=== PATIENT | male | born 1965 | race Caucasian/White ===

== ENCOUNTER 2018-01-28 22:22 | Inpatient (IN) | payer OTHER ==
[~2018-01-28 22:22] MED LIST: ALBU6.7H INH; LEVA500T33 PO; MEDR4PAK3 PO
[2018-01-28 22:40] VITALS: BP 155/73; PULSE 84; RESP 21; TEMP 98.4; O2SAT 98
[2018-01-28] MEDS ORDERED: CLINDAMYCIN 900 MG/NS PREMIX 50 ML IV SCH (23:00)
--- NOTE | 2018-01-28 23:06 | PD ---
HPI Chief Complaint: Injury Time Seen by Provider: 22:54 Travel History International Travel<30 days: No Contact w/Intl Traveler<30days: No Traveled to known affect area: No History of Present Illness HPI 52-year-old male with history of diabetes here for evaluation foot infection. Patient was seen by the [facility] and was advised to present to the emergency department for further evaluation. The patient reports that about a week ago he had a blister on his right second toe. Over the last week he has had increasing inflammation, and erythema to this toe. He states that the toenail fell off 2 days ago. He denies fevers or chills. Pain is moderate, worse with movement and ambulation. PFSH Past Medical History Anxiety: Yes Cardiovascular Problems: Yes (STRESS TEST NEGATIVE FINDINGS) Diabetes: Yes Gastrointestinal Disorders: Yes (COLONOSCOPY) Neurologic: Yes (ESSENTIAL FAMILIAL TREMORS) Respiratory: Yes (PLEURISY) Social History Alcohol Use: Yes (RARELY) Tobacco Use: No Substance Use: No Allergies-Medications (Allergen,Severity, Reaction): Coded Allergies: No Known Allergies (Verified Allergy, Mild, 01/28/18) Reported Meds & Prescriptions Reported Meds & Active Scripts Active Reported Naproxen Sodium 220 Mg Tab 220 Mg PO BID PRN Onglyza (Saxagliptin) 5 Mg Tab 5 Mg PO DAILY Metformin (Metformin HCl) 1,000 Mg Tab 1,000 Mg PO DAILY With a meal Review of Systems Except as stated in HPI: all other systems reviewed are Neg Physical Exam Narrative GENERAL: Well-developed, well-nourished, awake, alert, no apparent distress. SKIN: Plantar aspect of right second toe with distal ulceration of moderate depth with diffuse swelling of the second toe as well as diffuse erythema. There is erythema to the entire forefoot as well as warmth. No crepitus. Moderate tenderness. No induration. No fluctuance. Right great toe with distal/medial toe with area of callus with underlying eschar. The patient reports that this was a blister a couple of months ago. HEAD: Atraumatic. Normocephalic. EYES: Pupils equal and round. No scleral icterus. No injection or drainage. ENT: No nasal bleeding or discharge. Mucous membranes pink and moist. NECK: Trachea midline. No JVD. CARDIOVASCULAR: Regular rate and rhythm. Bilateral dorsalis pedis pulses are brisk and equal. RESPIRATORY: No accessory muscle use. Clear to auscultation. Breath sounds equal bilaterally. GASTROINTESTINAL: Abdomen soft, non-tender, nondistended. MUSCULOSKELETAL: No obvious deformities. No clubbing. No cyanosis. No edema. NEUROLOGICAL: Awake and alert. No obvious cranial nerve deficits. Motor grossly within normal limits. Normal speech. PSYCHIATRIC: Appropriate mood and affect; insight and judgment normal. Data Data Last Documented VS Vital Signs Date Time Temp Pulse Resp B/P (MAP) Pulse Ox O2 Delivery O2 Flow Rate FiO2 01/28/18 22:40 98.4 84 21 155/73 (100) 98 Orders Orders Sepsis Workup Initiated (01/28/18 ) Complete Blood Count With Diff (01/28/18 23:00) Comprehensive Metabolic Panel (01/28/18 23:00) Prothrombin Time / Inr (Pt) (01/28/18 23:00) Act Partial Throm Time (Ptt) (01/28/18 23:00) Lactic Acid Sepsis Protocol (01/28/18 23:00) Blood Culture (01/28/18 23:00) Iv Access Insert/Monitor (01/28/18 23:00) Foot, Complete ([id number]) (01/28/18 ) Clindamycin 900 Mg/Ns Premix (Cleocin 90 (01/28/18 23:00) Westergren Sedimentation Rate (01/28/18 23:43) C-Reactive Protein (Crp) (01/28/18 23:30) Wound Culture And Gram Stain (01/29/18 00:32) Admit Order (Ed Use Only) (01/29/18 00:56) Labs Laboratory Tests Test 01/28/18 23:30 White Blood Count 8.5 TH/MM3 Red Blood Count 4.61 MIL/MM3 Hemoglobin 12.8 GM/DL Hematocrit 38.0 % Mean Corpuscular Volume 82.6 FL Mean Corpuscular Hemoglobin 27.8 PG Mean Corpuscular Hemoglobin Concent 33.7 % Red Cell Distribution Width 14.7 % Platelet Count 226 TH/MM3 Mean Platelet Volume 7.6 FL Neutrophils (%) (Auto) 63.6 % Lymphocytes (%) (Auto) 24.2 % Monocytes (%) (Auto) 9.3 % Eosinophils (%) (Auto) 2.2 % Basophils (%) (Auto) 0.7 % Neutrophils # (Auto) 5.4 TH/MM3 Lymphocytes # (Auto) 2.1 TH/MM3 Monocytes # (Auto) 0.8 TH/MM3 Eosinophils # (Auto) 0.2 TH/MM3 Basophils # (Auto) 0.1 TH/MM3 CBC Comment DIFF FINAL Differential Comment Erythrocyte Sedimentation Rate 44 mm/hr Prothrombin Time 10.2 SEC Prothromb Time International Ratio 1.0 RATIO Activated Partial Thromboplast Time 25.1 SEC Blood Urea Nitrogen 19 MG/DL Creatinine 0.89 MG/DL Random Glucose 153 MG/DL Total Protein 7.5 GM/DL Albumin 3.5 GM/DL Calcium Level 8.8 MG/DL Alkaline Phosphatase 62 U/L Aspartate Amino Transf (AST/SGOT) 13 U/L Alanine Aminotransferase (ALT/SGPT) 21 U/L Total Bilirubin 0.3 MG/DL Sodium Level 142 MEQ/L Potassium Level 3.9 MEQ/L Chloride Level 105 MEQ/L Carbon Dioxide Level 26.0 MEQ/L Anion Gap 11 MEQ/L Estimat Glomerular Filtration Rate 89 ML/MIN Lactic Acid Level 1.8 mmol/L C-Reactive Protein 0.41 MG/DL [facility] Medical Decision Making Medical Screen Exam Complete: Yes Emergency Medical Condition: Yes Differential Diagnosis Diabetic foot ulcer, osteomyelitis, abscess, sepsis, cellulitis Narrative Course Initial vital signs show heart rate 84, blood pressure 155/73, pulse ox 98% on room air, oral temp of 98.4F. CBC: WBC 8.5, hemoglobin 12.8, hematocrit 38, platelets 226. CMP is remarkable for random glucose 153, otherwise unremarkable. Lactic acid is 1.8. ESR is 44 CRP is 0.41 Right foot x-ray: CONCLUSION: 1. Mild to moderate degenerative change in the mid and hindfoot with no destructive change identified. 2. Moderate-sized spur off the inferior calcaneus. Patient was given a dose of 900 mg of IV clindamycin. He has an ulceration to the distal/plantar aspect of his right second toe with significant edema to the second toe with warmth and erythema of the entire right forefoot. According to the patient and the patient's significant other, this infection has rapidly progressed over the last couple of days. Although his lab work is essentially unremarkable, the patient's physical exam findings is remarkable for a significant area of cellulitis to his right foot. Given that and his history of diabetes with diabetic neuropathy, I believe the patient would benefit from at least overnight observation for IV antibiotics and podiatry evaluation. Case discussed with hospitalist Dr. Salgado who will admit the patient to his service. Diagnosis Primary Impression: Diabetic infection of right foot Admitting Information Admitting Physician Requests: Admit Pancho Perez MD January 28, 2018 23:06
--- NOTE | 2018-01-28 23:28 | RADRPT ---
EXAM DATE/TIME: 01/28/2018 23:11 [facility] COMPARISON: No previous studies available for comparison. INDICATIONS : Pain in right foot, evaluate for osteomyelitis. MEDICAL HISTORY : None. SURGICAL HISTORY : None. ENCOUNTER: Initial ACUITY: 1 day PAIN SCORE: 3/10 LOCATION: Right foot FINDINGS: AP, lateral and oblique views of the right foot were obtained and demonstrate normal mineralization a nd alignment. Degenerative changes R. noted involving the metatarsal tarsal joints and intertarsal annette ints with sclerosis, spurring and mild joint space loss. No destructive change or periosteal new bone formation is identified. There is no focal soft tissue abnormality. There is a moderate-sized spur o ff the inferior calcaneus at the site of attachment of plantar aponuerosis. CONCLUSION: 1. Mild to moderate degenerative change in the mid and hindfoot with no destructive change identified . 2. Moderate-sized spur off the inferior calcaneus. Francisco Whitmore MD on January 28, 2018 at 23:26 Board Certified Radiologist. This report was verified electronically.
[2018-01-28 23:50] LABS: AUTOMATED NEUTROPHIL # 5.4 TH/MM3 (1.8-7.7); BASOPHIL # 0.1 TH/MM3 (0-0.2); BASOPHIL % 0.7 % (0.0-2.0); EOSINOPHIL # 0.2 TH/MM3 (0-0.4); EOSINOPHIL % 2.2 % (0.0-4.0); HEMOGLOBIN 12.8 GM/DL (13.0-17.0); LYMPH % 24.2 % (9.0-44.0); LYMPHOCYTE # 2.1 TH/MM3 (1.0-4.8); MEAN CELL VOLUME 82.6 FL (80.0-100.0); MEAN CORPUSCULAR HEMOGLOBIN 27.8 PG (27.0-34.0); MEAN CORPUSCULAR HGB CONC 33.7 % (32.0-36.0); MEAN PLATELET VOLUME 7.6 FL (7.0-11.0); MONO % 9.3 % (0.0-8.0); MONOCYTE # 0.8 TH/MM3 (0-0.9); NEUT % 63.6 % (16.0-70.0); PLATELET COUNT 226 TH/MM3 (150-450); RED BLOOD COUNT 4.61 MIL/MM3 (4.50-5.90); RED CELL DISTRIBUTION WIDTH 14.7 % (11.6-17.2); WHITE BLOOD COUNT 8.5 TH/MM3 (4.0-11.0)
[2018-01-29 00:01] LABS: PROTHROMBIN TIME - PATIENT 10.2 SEC (9.8-11.6)
[2018-01-29 00:23] LABS: ALBUMIN 3.5 GM/DL (3.4-5.0); AST (GOT) 13 U/L (15-37); BLOOD UREA NITROGEN 19 MG/DL (7-18); CALCIUM 8.8 MG/DL (8.5-10.1); CHLORIDE 105 MEQ/L (98-107); CREATININE 0.89 MG/DL (0.60-1.30); GLOMERULAR FILTRATION RATE 89 ML/MIN (>89); GLUCOSE,RANDOM 153 MG/DL (74-106); SODIUM (NA) 142 MEQ/L (136-145)
[2018-01-29 00:24] LABS: ALT (GPT) 21 U/L (12-78)
[2018-01-29 00:26] LABS: ALKALINE PHOSPHATASE 62 U/L (45-117); TOTAL BILIRUBIN ADULT 0.3 MG/DL (0.2-1.0); TOTAL PROTEIN 7.5 GM/DL (6.4-8.2)
[2018-01-29 00:40] LABS: C-REACTIVE PROTEIN 0.41 MG/DL (0.00-0.30)
[2018-01-29] MEDS ORDERED: MEDI220T PO (00:43)
[2018-01-29] MEDS ORDERED: ONGL5TAB PO (00:43)
[2018-01-29] MEDS ORDERED: METF1000 PO (00:43)
[2018-01-29] MEDS ORDERED: MAGNESIUM HYDROXIDE SUSP 30 ML CUP PO PRN (01:00)
[2018-01-29] MEDS ORDERED: NALOXONE HCL 0.4 MG/ML AMP IV PUSH PRN (01:00)
[2018-01-29] MEDS ORDERED: ACETAMINOPHEN 325 MG TAB PO PRN (01:00)
[2018-01-29] MEDS ORDERED: ONDANSETRON HCL 4 MG/2 ML VIAL IVP PRN (01:00)
[2018-01-29] MEDS ORDERED: SENNOSIDES 8.6 MG TAB PO PRN (01:00)
[2018-01-29] MEDS ORDERED: BISACODYL 10 MG SUPP RECTAL PRN (01:00)
[2018-01-29] MEDS ORDERED: SODIUM CHLORIDE 0.9% FLUSH 10 ML FLUSH IV FLUSH PRN (01:00)
[2018-01-29] MEDS ORDERED: DEXTROSE 50% IN WATER 50 ML VIAL(D50) IV PUSH PRN (01:15)
[2018-01-29] MEDS ORDERED: ACETAMINOPHEN/HYDROcodone 325 MG/5 MG TAB PO PRN (01:15)
[2018-01-29] MEDS ORDERED: GLUCAGON 1 MG/ML VIAL OTHER PRN (01:15)
[2018-01-29] MEDS: PIPERACIL-TAZO 4.5 GM PREMIX 100 ML IV SCH ×4 (01:45→21:11)
--- NOTE | 2018-01-29 01:46 | HHI.HP ---
HPI Service [facility] Primary Care Physician Unknown Admission Diagnosis Infected diabetic foot ulcer Diagnoses: Chief Complaint: Right foot infection, ulceration. Travel History International Travel<30 Days: No Contact w/Intl Traveler <30 Da: No Traveled to Known Affected Are: No History of Present Illness Mr. Fournier is a 52-year-old male with a history of diabetes mellitus who presents to the emergency department on 01/29/2018 for an evaluation of right foot infection. About a week ago he noted a blister on his right second toe. Due to diabetic neuropathy, he did not feel much pain. During the course of 1 week, his first 2 toes on the right side have become tip necrosis and swelling. He denies any fever or chills. Patient denies any chest pain, abdominal pain, changes in bowel or bladder habits. Review of Systems Except as stated in HPI: all other systems reviewed are Neg Past Family Social History Past Medical History Essential tremors, pleurisy, diabetes mellitus Past Surgical History No significant surgical history Reported Medications Naproxen Sodium 220 Mg Tab 220 Mg PO BID PRN Onglyza (Saxagliptin) 5 Mg Tab 5 Mg PO DAILY Metformin (Metformin HCl) 1,000 Mg Tab 1,000 Mg PO DAILY With a meal Allergies: Coded Allergies: No Known Allergies (Verified Allergy, Mild, 01/28/18) Family History No family history of heart disease, Alzheimer's, Parkinson's Social History Alcohol Use: Yes (RARELY) Tobacco Use: No Substance Use: No Physical Exam Vital Signs Vital Signs Date Time Temp Pulse Resp B/P (MAP) Pulse Ox O2 Delivery O2 Flow Rate FiO2 01/28/18 22:40 98.4 84 21 155/73 (100) 98 Physical Exam GENERAL: This is a well-nourished, well-developed patient, in no apparent distress. SKIN: No rashes, ecchymoses or lesions. Warm and dry. HEAD: Atraumatic. Normocephalic. No temporal or scalp tenderness. EYES: Pupils equal round and reactive. No injection or drainage. ENT: Nose without bleeding, purulent drainage or septal hematoma. Airway patent. NECK: Trachea midline. No lymphadenopathy. Supple, nontender, no meningeal signs. CARDIOVASCULAR: Regular rate and rhythm without murmurs, gallops, or rubs. No JVD. RESPIRATORY: Clear to auscultation. Breath sounds equal bilaterally. No wheezes , rales, or rhonchi. GASTROINTESTINAL: Abdomen soft, non-tender, nondistended. No guarding. MUSCULOSKELETAL: 1+ lower extremity edema. Right foot has first digit swelling with ulceration and tip is necrotic, 2nd toe on the right also is swollen. NEUROLOGICAL: Awake and alert. Cranial nerves II through XII intact. No focal neurological deficits. Normal speech. Laboratory Laboratory Tests Test 01/28/18 23:30 White Blood Count 8.5 Red Blood Count 4.61 Hemoglobin 12.8 Hematocrit 38.0 Mean Corpuscular Volume 82.6 Mean Corpuscular Hemoglobin 27.8 Mean Corpuscular Hemoglobin Concent 33.7 Red Cell Distribution Width 14.7 Platelet Count 226 Mean Platelet Volume 7.6 Neutrophils (%) (Auto) 63.6 Lymphocytes (%) (Auto) 24.2 Monocytes (%) (Auto) 9.3 Eosinophils (%) (Auto) 2.2 Basophils (%) (Auto) 0.7 Neutrophils # (Auto) 5.4 Lymphocytes # (Auto) 2.1 Monocytes # (Auto) 0.8 Eosinophils # (Auto) 0.2 Basophils # (Auto) 0.1 CBC Comment DIFF FINAL Differential Comment Erythrocyte Sedimentation Rate 44 Prothrombin Time 10.2 Prothromb Time International Ratio 1.0 Activated Partial Thromboplast Time 25.1 Blood Urea Nitrogen 19 Creatinine 0.89 Random Glucose 153 Total Protein 7.5 Albumin 3.5 Calcium Level 8.8 Alkaline Phosphatase 62 Aspartate Amino Transf (AST/SGOT) 13 Alanine Aminotransferase (ALT/SGPT) 21 Total Bilirubin 0.3 Sodium Level 142 Potassium Level 3.9 Chloride Level 105 Carbon Dioxide Level 26.0 Anion Gap 11 Estimat Glomerular Filtration Rate 89 Lactic Acid Level 1.8 C-Reactive Protein 0.41 Date/Time Source Procedure Growth Status 01/28/18 23:25 Blood Peripheral Aerobic Blood Culture Pending Received 01/28/18 23:25 Blood Peripheral Anaerobic Blood Culture Pending Received Result Diagram: 01/28/18 2330 01/28/18 2330 Imaging Last Impressions Foot X-Ray 01/28/18 0000 Signed Impressions: Service Date/Time: Sunday, January 28, 2018 23:11 - CONCLUSION: 1. Mild to moderate degenerative change in the mid and hindfoot with no destructive change identified. 2. Moderate-sized spur off the inferior calcaneus. MD Myriam Swartz VTE Risk Assessment Caprin VTE Risk Assessment: Mod/High Risk (score >= 2) Caprini Risk Assessment Model Point Value = 1 Point Value = 2 Point Value = 3 Point Value = 5 Age 41-60 Minor surgery BMI > 25 kg/m2 Swollen legs Varicose veins or History of unexplained or recurrent spontaneous Oral contraceptives or hormone replacement Sepsis (< 1 month) Serious lung disease, including pneumonia (< 1 month) Abnormal pulmonary function Acute myocardial infarction Congestive heart failure (< 1 month) History of inflammatory bowel disease Medical patient at bed rest Age 61-74 Arthroscopic surgery Major open surgery (> 45 min) Laparoscopic surgery (> 45 min) Malignancy Confined to bed (> 72 hours) Immobilizing plaster cast Central venous access Age >= 75 History of VTE Family history of VTE Factor V Leiden Prothrombin [id number] Lupus anticoagulant Anticardiolipin antibodies Elevated serum homocysteine Heparin-induced thrombocytopenia Other congenital or acquired thrombophilia Stroke (< 1 month) Elective arthroplasty Hip, pelvis, or leg fracture Acute spinal cord injury (< 1 month) Prophylaxis Regimen Total Risk Factor Score Risk Level Prophylaxis Regimen 0-1 Low Early ambulation 2 Moderate Order ONE of the following: *Sequential Compression Device (SCD) *Heparin 5000 units SQ BID 3-4 Higher Order ONE of the following medications: *Heparin 5000 units SQ TID *Enoxaparin/Lovenox 40 mg SQ daily (WT < 150 kg, CrCl > 30 mL/min) *Enoxaparin/Lovenox 30 mg SQ daily (WT < 150 kg, CrCl > 10-29 mL/min) *Enoxaparin/Lovenox 30 mg SQ BID (WT < 150 kg, CrCl > 30 mL/min) AND/OR *Sequential Compression Device (SCD) 5 or more Highest Order ONE of the following medications: *Heparin 5000 units SQ TID (Preferred with Epidurals) *Enoxaparin/Lovenox 40 mg SQ daily (WT < 150 kg, CrCl > 30 mL/min) *Enoxaparin/Lovenox 30 mg SQ daily (WT < 150 kg, CrCl > 10-29 mL/min) *Enoxaparin/Lovenox 30 mg SQ BID (WT < 150 kg, CrCl > 30 mL/min) AND *Sequential Compression Device (SCD) Assessment and Plan Problem List: (1) Diabetic infection of right foot ICD Code: E11.628 - Type 2 diabetes mellitus with other skin complications; L08.9 - Local infection of the skin and subcutaneous tissue, unspecified Status: Acute (2) Diabetes mellitus ICD Code: E11.9 - Type 2 diabetes mellitus without complications Assessment and Plan Mr. Fournier is a pleasant 52-year-old male with a history of diabetes mellitus who presents to the emergency department due to diabetic foot infection of the right foot. He noticed a blister about 1 week ago and that has gradually worsened. Diabetic foot infection -We will start patient on Zosyn 4.5 g every 6 hours. -Consult podiatry. Deep tissue biopsy may be necessary. -Follow blood cultures. -Foot x-ray is not indicative of osteomyelitis. -Will obtain RAMÍREZ. Diabetes mellitus -We will continue sliding scale insulin for now. Goal blood glucose 140-180 while in the hospital. -At home patient takes metformin 1000 mg daily and Saxagliptin 5mg Qday. Full code. Lovenox. Physician Certification 2 Midnight Certification Type: Admission for Inpatient Services Order for Inpatient Services The services are ordered in accordance with Medicare regulations or non- Medicare payer requirements, as applicable. In the case of services not specified as inpatient-only, they are appropriately provided as inpatient services in accordance with the 2-midnight benchmark. Estimated LOS (days): 2 days is the estimated time the patient will need to remain in the hospital, assuming treatment plan goals are met and no additional complications. Post-Hospital Plan: Home Sebas Salgado DO January 29, 2018 1:46 am
[2018-01-29 04:17] VITALS: BP 148/77; PULSE 66; RESP 16; TEMP 97.5; O2SAT 96
[2018-01-29 07:53] VITALS: BP 131/81; PULSE 65; RESP 20; TEMP 97.5; O2SAT 98
[2018-01-29] MEDS: INSULIN ASPART SUPPLEMENTAL SCALE SQ SCH ×4 (08:00→21:00)
[2018-01-29] MEDS: SODIUM CHLORIDE 0.9% FLUSH 10 ML FLUSH IV FLUSH SCH ×2 (09:00→21:12)
--- NOTE | 2018-01-29 09:06 | HHI.PR ---
Subjective Remarks Follow-up on patient with infected diabetic foot injury. Patient seen and examined. Patient denies any complaints overnight. Denies any fever chills. Denies any nausea, vomiting or abdominal pain. Denies any chest pain or shortness of breath. Patient states his blood sugars well controlled at home running around 113 to 123. Patient's car broke in June of last year he has been walking 2 [address] to the bus stop every day for work. Patient states that a week ago he developed a blister on the bottom of the right second digit but he was unaware of due to loss of sensation. Wound has become progressed enlarged with increasing pain, erythema and edema. Patient reports frequent blood blisters on the first digit of the right foot. He has never been hospitalized for diabetic foot infection in the past. He does not follow with podiatry as outpatient. Patient has no complaints of lower extreme claudication. Objective Vitals Vital Signs Date Time Temp Pulse Resp B/P (MAP) Pulse Ox O2 Delivery O2 Flow Rate FiO2 01/29/18 07:53 97.5 65 20 131/81 (98) 98 01/29/18 04:17 97.5 66 16 148/77 (100) 96 01/28/18 22:40 98.4 84 21 155/73 (100) 98 I/O 01/28/18 01/28/18 01/28/18 01/29/18 01/29/18 01/29/18 07:00 15:00 23:00 07:00 15:00 23:00 Intake Total 50 ml Balance 50 ml Intake IV Total 50 ml Result Diagram: 01/28/18 2330 01/28/18 2330 Imaging Last Impressions Foot X-Ray 01/28/18 0000 Signed Impressions: Service Date/Time: Sunday, January 28, 2018 23:11 - CONCLUSION: 1. Mild to moderate degenerative change in the mid and hindfoot with no destructive change identified. 2. Moderate-sized spur off the inferior calcaneus. Francisco Whitmore MD Objective Remarks GENERAL: This is a well-nourished, well-developed male patient, in no apparent distress. Awake and alert. Appears comfortable. SKIN: Warm and dry. Right foot 1st digit with swelling, ulceration of the tip of the distal aspect of the hallux with necrosis. Second digit on the right edematous, erythematous with superficial wound over the bottom of the toe HEAD: Atraumatic. Normocephalic. No temporal or scalp tenderness. Bilateral lower extremity venous stasis changes noted with mild erythema noted over anterior right lower leg. EYES: Pupils equal round and reactive. No injection or drainage. ENT: Nose without bleeding or purulent drainage. Airway patent. MMM. NECK: Trachea midline. No lymphadenopathy. Supple, nontender, no meningeal signs. CARDIOVASCULAR: Regular rate and rhythm without murmurs, gallops, or rubs. No JVD. RESPIRATORY: Clear to auscultation. Breath sounds equal bilaterally. No wheezes , rales, or rhonchi. GASTROINTESTINAL: Abdomen soft, non-tender, nondistended. No guarding. MUSCULOSKELETAL: No obvious deformity noted. No clubbing or cyanosis. Bilateral lower extremity with trace to 1+ pitting edema with R leg slightly larger than the left. NEUROLOGICAL: Awake and alert. Cranial nerves II through XII grossly intact. Motor and sensory functions grossly intact. No focal neurological deficits. Normal speech. PSYCHIATRIC: Appropriate mood and affect. Normal judgment and insight. Calm and cooperative with examination. A/P Problem List: (1) Diabetic infection of right foot ICD Code: E11.628 - Type 2 diabetes mellitus with other skin complications; L08.9 - Local infection of the skin and subcutaneous tissue, unspecified Status: Acute (2) Diabetes mellitus ICD Code: E11.9 - Type 2 diabetes mellitus without complications Assessment and Plan Mr. Fournier is a pleasant 52-year-old male with a history of diabetes mellitus who presents to the emergency department due to diabetic foot infection of the right foot. He noticed a blister about 1 week ago and that has gradually worsened. Diabetic foot infection right 1st and 2nd digits Right foot first and second digit cellulitis X-ray of the right foot not indicative of osteomyelitis ESR 44, CRP 0.41 -Continue on Zosyn 4.5 g every 6 hours. -Consult podiatry. Deep tissue biopsy may be necessary. -Follow wound and blood cultures until finalized -Will obtain RAMÍREZ. Diabetes mellitus At home patient takes metformin 1000 mg daily and Saxagliptin 5mg Qday. -Obtain HgbA1c -We will continue with accucheks and sliding scale insulin for now. Goal blood glucose 140-180 while in the hospital. Full code. Lydia Siddiqui January 29, 2018 09:06
[2018-01-29] MEDS: ENOXAPARIN SODIUM 40 MG/0.4 ML SYRINGE SQ SCH (11:03)
[2018-01-29 11:07] VITALS: BP 119/61; PULSE 64; RESP 20; TEMP 98.2; O2SAT 97
--- NOTE | 2018-01-29 15:00 | RADRPT ---
EXAM DATE: 01/29/2018 2:51 PM EDT AGE/SEX: 52 years / Male INDICATIONS: Right foot pain and swelling. Diabetic neuropathy with right foot/toes infection. CLINICAL DATA: This is the patient's initial encounter. Patient reports that signs and symptoms have been present for 1 day and indicates a pain score of 3/10. MEDICAL/SURGICAL HISTORY: Hypertension. Essential familial tremors. Diabetes. Pleurisy. Diabeti c neuropathy. . Colonoscopy. Hernia repair. COMPARISON: No prior [facility] exams available for comparison. TECHNIQUE: Venous ultrasound of both lower extremities was performed from the inguinal ligament to t he proximal calf. Real-time, color Doppler and spectral tracing, compression and augmentation techni ques were used. FINDINGS: Right Leg: There is normal compressibility of the deep venous system from the inguinal region to the proximal calf. No echogenic clot is seen in the lumen of the common femoral, femoral, popliteal, an d posterior tibial veins. There is a normal response of the venous system to proximal and distal aug mentation and respiration. Left Leg: There is normal compressibility of the deep venous system from the inguinal region to the proximal calf. No echogenic clot is seen in the lumen of the common femoral, femoral, popliteal, and posterior tibial veins. There is a normal response of the venous system to proximal and distal augm entation and respiration. CONCLUSION: 1. No evidence of DVT. Electronically signed by: Yrn Castellanos MD 01/29/2018 2:58 PM EDT
[2018-01-29 15:06] VITALS: BP 135/72; PULSE 62; RESP 20; TEMP 97.8; O2SAT 96
[2018-01-29 16:12] LABS: HEMOGLOBIN A1C 5.9 % (4.3-6.0)
--- NOTE | 2018-01-29 18:37 | PD.CONS ---
History of Present Illness Consult Requested By Foot and ankle surgery/podiatry Reason for Consult Right foot infection Primary Care Physician Unknown Diagnoses: History of Present Illness Foot and ankle surgery/podiatry consulted for this 52-year-old male with history of diabetes mellitus states he noted a blister to his right second toe when seen in a who presented to the emergency department for evaluation of right foot infection. Patient was seen in a community clinic in [facility], upon being seen patient was encouraged to proceed immediately to the emergency department secondary to degree of infection. Patient is neuropathic and does not have feeling the bilateral lower extremities. He denies any nausea vomiting fevers or chills. Review of Systems Constitutional: DENIES: Fatigue, Fever Respiratory: DENIES: Cough, Shortness of breath Cardiovascular: DENIES: Chest pain, Lower Extremity Edema Musculoskeletal: DENIES: Joint pain Neurologic: DENIES: Abnormal gait Psychiatric: DENIES: Anxiety, Confusion Past Family Social History Allergies: Coded Allergies: No Known Allergies (Verified Allergy, Mild, 01/28/18) Past Medical History As per HPI Active Ordered Medications Current Medications Medications (Trade) Dose Ordered Sig/Jared Route Start Time Stop Time Status Last Admin (NS Flush) 2 ml UNSCH PRN IV FLUSH 01/29/18 01:00 (NS Flush) 2 ml BID IV FLUSH 01/29/18 09:00 01/29/18 09:00 (Tylenol) 650 mg Q4H PRN PO 01/29/18 01:00 (Zofran Inj) 4 mg Q6H PRN IVP 01/29/18 01:00 (Lovenox Inj) 40 mg Q24H SQ 01/29/18 09:00 01/29/18 11:03 (Narcan Inj) 0.4 mg UNSCH PRN IV PUSH 01/29/18 01:00 (Milk Of Magnesia Liq) 30 ml Q12H PRN PO 01/29/18 01:00 (Senokot) 17.2 mg Q12H PRN PO 01/29/18 01:00 (Dulcolax Supp) 10 mg DAILY PRN RECTAL 01/29/18 01:00 (Lactulose Liq) 30 ml DAILY PRN PO 01/29/18 01:00 Piperacillin Sod/ Tazobactam Sod 100 ml @ 200 mls/hr Q6H IV 01/29/18 01:00 01/29/18 13:00 (D50w (Vial) Inj) 50 ml UNSCH PRN IV PUSH 01/29/18 01:15 (Glucagon Inj) 1 mg UNSCH PRN OTHER 01/29/18 01:15 (NovoLOG SUPPLEMENTAL SCALE) 1 ACHS SLIDING SCALE SQ 01/29/18 08:00 ([place] 5-325 Mg) 1 tab Q6H PRN PO 01/29/18 01:15 Physical Exam Vital Signs Vital Signs Date Time Temp Pulse Resp B/P (MAP) Pulse Ox O2 Delivery O2 Flow Rate FiO2 01/29/18 15:06 97.8 62 20 135/72 (93) 96 01/29/18 11:07 98.2 64 20 119/61 (80) 97 01/29/18 07:53 97.5 65 20 131/81 (98) 98 01/29/18 04:17 97.5 66 16 148/77 (100) 96 01/28/18 22:40 98.4 84 21 155/73 (100) 98 Physical Exam GENERAL: This is a well-nourished, well-developed patient, in no apparent distress. SKIN: Distal tip ulcer to right second digit, medial hallux blister formation HEAD: Atraumatic. EYES: Pupils equal round and reactive. ENT: Airway patent. NECK: Trachea midline. RESPIRATORY: Nonlabored breathing. MUSCULOSKELETAL:. Negative Homans sign bilaterally. NEUROLOGICAL: Awake and alert. Normal speech. Lower extremity physical exam: Vascular: Dorsalis pedis 2/4, posterior tibial nonpalpable. Capillary refill time within normal limits to digits 5 bilateral foot. Edema present right foot Neuro: Gross sensation intact to bilateral lower extremity. Pinpoint sensation decreased. No hyperalgesia noted to bilateral lower extremity Dermatology: Increased temperature noted to right foot with ascending erythema noted into tarsometatarsal joint. Right second digit distal tip ulceration with fibro-granular base, hyperkeratotic borders, nail absent, serous drainage noted, no purulent drainage noted upon compression, no fluctuance no crepitans noted. Musculoskeletal: No tenderness to palpation. Hammertoe noted to right second digit which is causing distal tip ulceration. Laboratory Laboratory Tests Test 01/28/18 23:30 White Blood Count 8.5 Red Blood Count 4.61 Hemoglobin 12.8 Hematocrit 38.0 Mean Corpuscular Volume 82.6 Mean Corpuscular Hemoglobin 27.8 Mean Corpuscular Hemoglobin Concent 33.7 Red Cell Distribution Width 14.7 Platelet Count 226 Mean Platelet Volume 7.6 Neutrophils (%) (Auto) 63.6 Lymphocytes (%) (Auto) 24.2 Monocytes (%) (Auto) 9.3 Eosinophils (%) (Auto) 2.2 Basophils (%) (Auto) 0.7 Neutrophils # (Auto) 5.4 Lymphocytes # (Auto) 2.1 Monocytes # (Auto) 0.8 Eosinophils # (Auto) 0.2 Basophils # (Auto) 0.1 CBC Comment DIFF FINAL Differential Comment Erythrocyte Sedimentation Rate 44 Prothrombin Time 10.2 Prothromb Time International Ratio 1.0 Activated Partial Thromboplast Time 25.1 Blood Urea Nitrogen 19 Creatinine 0.89 Random Glucose 153 Total Protein 7.5 Albumin 3.5 Calcium Level 8.8 Alkaline Phosphatase 62 Aspartate Amino Transf (AST/SGOT) 13 Alanine Aminotransferase (ALT/SGPT) 21 Total Bilirubin 0.3 Sodium Level 142 Potassium Level 3.9 Chloride Level 105 Carbon Dioxide Level 26.0 Anion Gap 11 Estimat Glomerular Filtration Rate 89 Hemoglobin A1c 5.9 Lactic Acid Level 1.8 C-Reactive Protein 0.41 Date/Time Source Procedure Growth Status 01/28/18 23:25 Blood Peripheral Aerobic Blood Culture - Preliminary NO GROWTH IN 1 DAY Resulted 01/28/18 23:25 Blood Peripheral Anaerobic Blood Culture - Preliminary NO GROWTH IN 1 DAY Resulted 01/29/18 08:19 Wound Toe Gram Stain - Final Resulted 01/29/18 08:19 Wound Toe Wound Culture Pending Resulted Result Diagram: 01/28/18 2330 01/28/18 2330 Imaging Last Impressions Lower Extremity Ultrasound 01/29/18 0000 Signed Impressions: CONCLUSION: Foot X-Ray 01/28/18 0000 Signed Impressions: Service Date/Time: Sunday, January 28, 2018 23:11 - CONCLUSION: 1. Mild to moderate degenerative change in the mid and hindfoot with no destructive change identified. 2. Moderate-sized spur off the inferior calcaneus. Francisco Whitmore MD Assessment and Plan Assessment and Plan 52-year-old male with right second digit ulceration, right hallux blister formation Patient examined evaluated with all questions answered Continue IV antibiotics MRI right foot rule out osteomyelitis to right second digit We will order ABIs Consult vascular surgery Dr. Jazerevic if ABIs are abnormal Will perform bedside debridement prior to discharge Patient will need discharge to wound care clinic here at [place] Consent to read bedside debridement irrigation right foot Please have materials bedside Mellissa Worthy DPM January 29, 2018 18:36
[2018-01-29 19:36] VITALS: BP 128/72; PULSE 66; RESP 18; TEMP 97.8; O2SAT 97
[2018-01-29] MEDS ORDERED: INSULIN DETEMIR 100 UNITS/ML VIAL SQ SCH (21:00)
[2018-01-30 00:57] VITALS: BP 132/75; PULSE 60; RESP 18; TEMP 97.8; O2SAT 97
[2018-01-30] MEDS: PIPERACIL-TAZO 4.5 GM PREMIX 100 ML IV SCH ×4 (01:12→18:30)
[2018-01-30 07:13] VITALS: BP 130/70; PULSE 62; RESP 20; TEMP 97.4; O2SAT 95
[2018-01-30] MEDS: INSULIN ASPART SUPPLEMENTAL SCALE SQ SCH ×4 (08:00→20:05)
[2018-01-30] MEDS: ENOXAPARIN SODIUM 40 MG/0.4 ML SYRINGE SQ SCH (08:37)
[2018-01-30] MEDS: SODIUM CHLORIDE 0.9% FLUSH 10 ML FLUSH IV FLUSH SCH ×2 (08:37→20:05)
[2018-01-30] MEDS ORDERED: GADODIAMIDE PF 287 MG/ML 20 ML VIAL (for RAD MRI) IV PUSH ONE (11:47)
--- NOTE | 2018-01-30 12:14 | RADRPT ---
EXAM DATE: 01/30/2018 11:36 AM EDT AGE/SEX: 52 years / Male INDICATIONS: . Right 2nd digit ulcer. CLINICAL DATA: This is the patient's subsequent encounter. Patient reports that signs and symptoms h ave been present for 2 days and indicates a pain score of 2/10. MEDICAL/SURGICAL HISTORY: Hypertension. Diabetes mellitus type II. Umbilical hernia repair. COMPARISON: No prior exams available for comparison. TECHNIQUE: Multiplanar, multisequence MRI examination was performed without contrast and after th e intravenous administration of 38 ml Omniscan (gadodiamide) single exam dose. FINDINGS: Ill-defined soft tissue edema and enhancement of the second toe indicating cellulitis in the proper c linical setting. Distal cutaneous ulceration. Ill-defined bony edema distal phalanx of the second toe on the T2-weighted images. Mild bony enhancement of the distal phalanx on the postcontrast images. M ild signal abnormality on the precontrast T1-weighted images in the distal portion of the distal phal anx. No evidence of soft tissue abscess. Small osteophytes of the great toe metatarsophalangeal joint. Sma ll moderate-sized osteophytes of the tarsometatarsal joints along with mild subchondral reactive bony change at the tarsometatarsal joints. Moderate severity subchondral reactive bony change of the lamar cular cuneiform joints. Diffuse fatty atrophy of the intrinsic foot muscles. CONCLUSION: 1. Ill-defined soft tissue edema and enhancement of the second toe indicating cellulitis in the prop er clinical setting. 2. Ill-defined bony edema and enhancement of the distal talus of second toe. Mild T1-weighted precon trast signal abnormality of the distal aspect of the distal phalanx. Findings indicate early osteomye litis in the proper clinical setting. 3. 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 Electronically signed by: Edward Sorensen MD 01/30/2018 12:12 PM EDT
[2018-01-30 12:56] VITALS: BP 151/81; PULSE 72; RESP 15; TEMP 97.7; O2SAT 96
--- NOTE | 2018-01-30 16:02 | RADRPT ---
EXAM DATE: 01/29/2018 2:21 PM EDT AGE/SEX: 52 years / Male INDICATIONS: Infected diabetic foot ulcer CLINICAL DATA: This is the patient's initial encounter. Patient reports that signs and symptoms have been present for 2 weeks and indicates a pain score of 3/10. MEDICAL/SURGICAL HISTORY: . Infected diabetic foot ulcer . COMPARISON: No prior [facility] exams available for comparison. TECHNIQUE: Four-cuff ankle and brachial pressures were obtained. Pulse cuff waveform tracings of the ankles were recorded, and ankle-brachial indices were calculated. PRESSURES (mmHg): Brachial (arm) : RIGHT: IV site, LEFT: 126 Ankle : RIGHT: 157, LEFT: 153 RAMÍREZ : RIGHT: 1.25, LEFT: 1.21 TBI : RIGHT: 0.71, LEFT: 0.99 PULSED CUFF WAVEFORMS: Demonstrate normal amplitude bilaterally. CONCLUSION: 1. Elevated segmental pressures characteristic of atherosclerotic vascular disease 2. Normal ABIs and TBI's; no evidence of significant arterial insufficiency. Electronically signed by: Bryce Mora MD 01/29/2018 2:33 PM EDT
[2018-01-30 16:10] VITALS: BP 151/75; PULSE 66; RESP 18; TEMP 97.6; O2SAT 97
--- NOTE | 2018-01-30 19:29 | HHI.PR ---
Subjective Remarks Pain controlled Patient denies fevers or chills Denies nausea, denies diarrhea. Objective Vitals Vital Signs Date Time Temp Pulse Resp B/P (MAP) Pulse Ox O2 Delivery O2 Flow Rate FiO2 01/30/18 16:10 97.6 66 18 151/75 (100) 97 01/30/18 12:56 97.7 72 15 151/81 (104) 96 01/30/18 07:13 97.4 62 20 130/70 (90) 95 01/30/18 00:57 97.8 60 18 132/75 (94) 97 01/29/18 19:36 97.8 66 18 128/72 (90) 97 I/O 01/29/18 01/29/18 01/29/18 01/30/18 01/30/18 01/30/18 07:00 15:00 23:00 07:00 15:00 23:00 Intake Total 50 ml Balance 50 ml Intake IV Total 50 ml Result Diagram: 01/28/18 2330 01/28/18 2330 Imaging Last Impressions Foot MRI 01/30/18 0000 Signed Impressions: CONCLUSION: 1. Ill-defined soft tissue edema and enhancement of the second toe indicating cellulitis in the proper clinical setting. 2. Ill-defined bony edema and enhancement of the distal talus of second toe. M ild T1-weighted precontrast signal abnormality of the distal aspect of the dist al phalanx. Findings indicate early osteomyelitis in the proper clinical settin g. 3. 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 Lower Extremity Ultrasound 01/29/18 0000 Signed Impressions: CONCLUSION: 1. No evidence of DVT. Extremity Arterial Study 01/29/18 0000 Signed Impressions: CONCLUSION: 1. Elevated segmental pressures characteristic of atherosclerotic vascular dis ease 2. Normal ABIs and TBI's; no evidence of significant arterial insufficiency. Foot X-Ray 01/28/18 0000 Signed Impressions: Service Date/Time: Sunday, January 28, 2018 23:11 - CONCLUSION: 1. Mild to moderate degenerative change in the mid and hindfoot with no destructive change identified. 2. Moderate-sized spur off the inferior calcaneus. Francisco Whitmore MD Objective Remarks GENERAL: This is a well-nourished, well-developed patient, in no apparent distress. SKIN: No rashes, ecchymoses or lesions. Warm and dry. HEAD: Atraumatic. Normocephalic. No temporal or scalp tenderness. EYES: Pupils equal round and reactive. No injection or drainage. ENT: Nose without bleeding, purulent drainage or septal hematoma. Airway patent. NECK: Trachea midline. No lymphadenopathy. Supple, nontender, no meningeal signs. CARDIOVASCULAR: Regular rate and rhythm without murmurs, gallops, or rubs. No JVD. RESPIRATORY: Clear to auscultation. Breath sounds equal bilaterally. No wheezes , rales, or rhonchi. GASTROINTESTINAL: Abdomen soft, non-tender, nondistended. No guarding. MUSCULOSKELETAL: 1+ lower extremity edema. Right foot has first digit swelling with ulceration and tip is necrotic, 2nd toe on the right also is swollen. NEUROLOGICAL: Awake and alert. Cranial nerves II through XII intact. No focal neurological deficits. Normal speech. A/P Problem List: (1) Diabetic infection of right foot ICD Code: E11.628 - Type 2 diabetes mellitus with other skin complications; L08.9 - Local infection of the skin and subcutaneous tissue, unspecified Status: Acute (2) Diabetes mellitus ICD Code: E11.9 - Type 2 diabetes mellitus without complications (3) Foot osteomyelitis, right ICD Code: M86.9 - Osteomyelitis, unspecified Assessment and Plan MR with signs of early osteomyelitis continue pain control await podiatry recommendations continue IV antibiotics RAMÍREZ abnormal ---> consult vascular surgery. Diabetes well controlled - - hemoglobin A1c 5.9. Continue SSI. Wound culture is growing gram negative rods Pain control with [place]. Continue Lovenox SQ for DVT prophylaxis. Discharge Planning Continue medical floor. Vascular surgery consulted. Problem Qualifiers (1) Diabetes mellitus: Franki Ferreira MD January 30, 2018 19:29
--- NOTE | 2018-01-30 19:36 | HHI.PR ---
Subjective Remarks Patient seen bedside, discussed MRI results with patient. Denies any nausea vomiting fevers or chills. Objective Vital Signs Date Time Temp Pulse Resp B/P (MAP) Pulse Ox O2 Delivery O2 Flow Rate FiO2 01/30/18 16:10 97.6 66 18 151/75 (100) 97 01/30/18 12:56 97.7 72 15 151/81 (104) 96 01/30/18 07:13 97.4 62 20 130/70 (90) 95 01/30/18 00:57 97.8 60 18 132/75 (94) 97 01/29/18 19:36 97.8 66 18 128/72 (90) 97 I/O 01/29/18 01/29/18 01/29/18 01/30/18 01/30/18 01/30/18 07:00 15:00 23:00 07:00 15:00 23:00 Intake Total 50 ml Balance 50 ml Intake IV Total 50 ml Result Diagram: 01/28/18 2330 01/28/18 2330 Imaging Last Impressions Foot MRI 01/30/18 0000 Signed Impressions: CONCLUSION: 1. Ill-defined soft tissue edema and enhancement of the second toe indicating cellulitis in the proper clinical setting. 2. Ill-defined bony edema and enhancement of the distal talus of second toe. M ild T1-weighted precontrast signal abnormality of the distal aspect of the dist al phalanx. Findings indicate early osteomyelitis in the proper clinical settin g. 3. 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 Lower Extremity Ultrasound 01/29/18 0000 Signed Impressions: CONCLUSION: 1. No evidence of DVT. Extremity Arterial Study 01/29/18 0000 Signed Impressions: CONCLUSION: 1. Elevated segmental pressures characteristic of atherosclerotic vascular dis ease 2. Normal ABIs and TBI's; no evidence of significant arterial insufficiency. Foot X-Ray 01/28/18 0000 Signed Impressions: Service Date/Time: Sunday, January 28, 2018 23:11 - CONCLUSION: 1. Mild to moderate degenerative change in the mid and hindfoot with no destructive change identified. 2. Moderate-sized spur off the inferior calcaneus. Francisco Whitmore MD Other Results Microbiology Date/Time Source Procedure Growth Status 01/28/18 23:25 Blood Peripheral Aerobic Blood Culture - Preliminary NO GROWTH IN 2 DAYS Resulted 01/28/18 23:25 Blood Peripheral Anaerobic Blood Culture - Preliminary NO GROWTH IN 2 DAYS Resulted 01/29/18 08:19 Wound Toe Gram Stain - Final Resulted 01/29/18 08:19 Wound Culture - Preliminary Gram Negative Lele Resulted Objective Remarks Lower extremity physical exam: Vascular: Dorsalis pedis 2/4, posterior tibial nonpalpable. Capillary refill time within normal limits to digits 5 bilateral foot. Edema present right foot Neuro: Gross sensation intact to bilateral lower extremity. Pinpoint sensation decreased. No hyperalgesia noted to bilateral lower extremity Dermatology: Increased temperature noted to right foot with ascending erythema noted into tarsometatarsal joint. Right second digit distal tip ulceration with fibro-granular base, hyperkeratotic borders, nail absent, serous drainage noted, no purulent drainage noted upon compression, no fluctuance no crepitans noted. Musculoskeletal: No tenderness to palpation. Hammertoe noted to right second digit which is causing distal tip ulceration. Medications and IVs Current Medications Medications (Trade) Dose Ordered Sig/Jared Route Start Time Stop Time Status Last Admin (NS Flush) 2 ml UNSCH PRN IV FLUSH 01/29/18 01:00 (NS Flush) 2 ml BID IV FLUSH 01/29/18 09:00 01/30/18 08:37 (Tylenol) 650 mg Q4H PRN PO 01/29/18 01:00 (Zofran Inj) 4 mg Q6H PRN IVP 01/29/18 01:00 (Lovenox Inj) 40 mg Q24H SQ 01/29/18 09:00 01/29/18 11:03 (Narcan Inj) 0.4 mg UNSCH PRN IV PUSH 01/29/18 01:00 (Milk Of Magnesia Liq) 30 ml Q12H PRN PO 01/29/18 01:00 (Senokot) 17.2 mg Q12H PRN PO 01/29/18 01:00 (Dulcolax Supp) 10 mg DAILY PRN RECTAL 01/29/18 01:00 (Lactulose Liq) 30 ml DAILY PRN PO 01/29/18 01:00 Piperacillin Sod/ Tazobactam Sod 100 ml @ 200 mls/hr Q6H IV 01/29/18 01:00 01/30/18 18:30 (D50w (Vial) Inj) 50 ml UNSCH PRN IV PUSH 01/29/18 01:15 (Glucagon Inj) 1 mg UNSCH PRN OTHER 01/29/18 01:15 (NovoLOG SUPPLEMENTAL SCALE) 1 ACHS SLIDING SCALE SQ 01/29/18 08:00 ([place] 5-325 Mg) 1 tab Q6H PRN PO 01/29/18 01:15 Assessment and Plan Assessment and Plan 52-year-old male with right second digit ulceration, right hallux blister formation Patient examined evaluated with all questions answered ABIs normal MRI suspicious for right second digit distal phalanx early signs of OM Bedside debridement performed to right second digit Patient at this time would like to move forward with IV antibiotic treatment versus amputation Recommend IV antibiotics however secondary to clinical nature of wound, there is no probe to bone and would recommend against a bone biopsy at this time is to not expose bone to possible further infection Patient will need follow-up with [place] [facility] Patient okay to be DC'd by podiatry once appropriate outpatient antibiotics have been arranged as well as appointment with [place] [facility] Mellissa Worthy DPM January 30, 2018 19:36
[2018-01-30 20:00] VITALS: BP 138/66; PULSE 66; RESP 16; TEMP 97.7; O2SAT 94
[2018-01-31] VITALS: BP 124/69; PULSE 60; RESP 16; TEMP 97.1; O2SAT 97
[2018-01-31] MEDS: PIPERACIL-TAZO 4.5 GM PREMIX 100 ML IV SCH ×4 (00:53→18:36)
[2018-01-31 08:00] VITALS: BP 127/67; PULSE 58; RESP 20; TEMP 97.4; O2SAT 97
[2018-01-31] MEDS: SODIUM CHLORIDE 0.9% FLUSH 10 ML FLUSH IV FLUSH SCH ×2 (09:12→20:41)
[2018-01-31] MEDS: INSULIN ASPART SUPPLEMENTAL SCALE SQ SCH ×4 (09:13→20:41)
[2018-01-31] MEDS: ENOXAPARIN SODIUM 40 MG/0.4 ML SYRINGE SQ SCH (09:13)
[2018-01-31 12:00] VITALS: BP 144/79; PULSE 64; RESP 18; TEMP 97.3; O2SAT 93
--- NOTE | 2018-01-31 13:35 | PD.ID.CON ---
History of Present Illness Service ID Consult Requested By Dr Worthy Reason for Consult osteomyelitis 2 nf R toe Primary Care Physician Unknown Diagnoses: History of Present Illness 52-year-old diabetic male developped a blister to his right second toe about a week ago Swelling and redness go progressively worse He was seen in a community clinic in [facility], upon being seen patient was encouraged to proceed immediately to the emergency department secondary to degree of infection. Patient is neuropathic and does not have feeling the bilateral lower extremities. He denies any nausea vomiting fevers or chills. MRI + for osteo He is s/p bedside debridement by Dr Worthy Review of Systems Except as stated in HPI: all other systems reviewed are Neg Past Family Social History Allergies: Coded Allergies: No Known Allergies (Verified Allergy, Mild, 01/28/18) Past Medical History DM neuropathy Past Surgical History colonoscopy Active Ordered Medications Medications where reviewed in EMR Antibiotics Include: zosyn Family History reviewed non contributoryto current ID issue Social History No Tobacco. No ETOH. No Illicit Drugs. Physical Exam Vital Signs Vital Signs Date Time Temp Pulse Resp B/P (MAP) Pulse Ox O2 Delivery O2 Flow Rate FiO2 01/31/18 00:00 97.1 60 16 124/69 (87) 97 01/30/18 20:00 97.7 66 16 138/66 (90) 94 01/30/18 16:10 97.6 66 18 151/75 (100) 97 Physical Exam CONSTITUTIONAL/GENERAL: This is an adequately nourished patient, in no apparent distress. TUBES/LINES/DRAINS: SKIN: No jaundice, rashes, or lesions. Skin temperature appropriate. Not diaphoretic. HEAD: Atraumatic. Normocephalic. EYES: Pupils equal and round and reactive. Extraocular motions intact. No scleral icterus. No injection or drainage. Fundi not examined. ENT: Hearing grossly normal. Nose without bleeding or purulent drainage. Throat without visible erythema, exudates, masses, or lesions. NECK: Trachea midline. Supple, nontender. No palpable thyroid enlargement or nodularity. CARDIOVASCULAR: Regular rate and rhythm without murmurs, gallops, or rubs. No JVD. Peripheral pulses symmetric. RESPIRATORY/CHEST: Symmetric, unlabored respirations. Clear to auscultation. Breath sounds equal bilaterally. No wheezes, rales, or rhonchi. GASTROINTESTINAL: Abdomen soft, non-tender, nondistended. No hepato-splenomegaly , or palpable masses. No guarding. Bowel sounds present. GENITOURINARY: Without palpable bladder distension. MUSCULOSKELETAL: Extremities without clubbing, cyanosis, or edema. R foot with dressing in place 2 R toe is swollen, erytmatous sausage shaped, red with unroofed blister on the tip NEUROLOGICAL: Awake and alert. Motor and sensory grossly within normal limits. Follows commands. Cognitively sharp. Moves all extremities. PSYCHIATRIC: No obvious anxiety/depression. no apparent hallucinations or other psychotic thought process. Laboratory Date/Time Source Procedure Growth Status 01/28/18 23:25 Blood Peripheral Aerobic Blood Culture - Preliminary NO GROWTH IN 3 DAYS Resulted 01/28/18 23:25 Blood Peripheral Anaerobic Blood Culture - Preliminary NO GROWTH IN 3 DAYS Resulted 01/29/18 08:19 Wound Toe Gram Stain - Final Resulted 01/29/18 08:19 Wound Culture - Preliminary Gram Negative Lele Resulted Result Diagram: 01/28/18 2330 01/28/18 2330 Imaging MRI: Ill-defined bony edema and enhancement of the distal talus of second toe. Mild T1-weighted precontrast signal abnormality of the distal aspect of the distal phalanx. Findings indicate early osteomyelitis in the proper clinical setting Assessment and Plan Assessment and Plan DFI, osteomyelitis 2 nd R toe sp b/s debridement growing GNB cont zosyn final rec's per final clx results anticipate 6 wks of abx (po/iv or combination) Discussed Condition With Elena Pringle pt, MD January 31, 2018 13:35
--- NOTE | 2018-01-31 15:25 | HHI.PR ---
Subjective Remarks Nursing denies any deterioration since last night. Patient says he has neuropathy, does not feel any pain. Denies any nausea vomiting fevers chills. Objective Vital Signs Date Time Temp Pulse Resp B/P (MAP) Pulse Ox O2 Delivery O2 Flow Rate FiO2 01/31/18 12:00 97.3 64 18 144/79 (100) 93 01/31/18 08:00 97.4 58 20 127/67 (87) 97 01/31/18 00:00 97.1 60 16 124/69 (87) 97 01/30/18 20:00 97.7 66 16 138/66 (90) 94 01/30/18 16:10 97.6 66 18 151/75 (100) 97 I/O 01/30/18 01/30/18 01/30/18 01/31/18 01/31/18 01/31/18 07:00 15:00 23:00 07:00 15:00 23:00 Intake Total 100 ml Balance 100 ml Intake IV Total 100 ml # Voids 2 Result Diagram: 01/28/18 2330 01/28/18 2330 Objective Remarks Right foot with healing wound on pressure/plantar aspect of second toe. Sitting up in bed, awake, alert, no acute distress A/P Assessment and Plan Infected DFU MRI showing possible signs of early osteomyelitis, podiatry refraining from surgical intervention to minimize further introduction of pathogens Wound culture is growing gram negative rods Continue IV antibiotics Awaiting final culture results so that ID can make antibiotic recommendations for discharge Clear for discharge from podiatry standpoint once ID makes antibiotic recommendations ABIs are normal, no need for vascular surgery consultation. Diabetes well controlled - - hemoglobin A1c 5.9. Continue SSI. Pain control with [place]. Continue Lovenox SQ for DVT prophylaxis. Discharge Planning Discharge once cleared with infectious disease with antibiotic arrangements accordingly. Isaiah Granados MD January 31, 2018 15:25
[2018-01-31 16:00] VITALS: BP 141/80; PULSE 87; RESP 18; TEMP 97.6; O2SAT 92
[2018-01-31 20:00] VITALS: BP 127/67; PULSE 62; RESP 16; TEMP 98.8; O2SAT 98
[2018-01-31] MEDS: LACTULOSE SYRUP 20 GM/30 ML CUP PO PRN (20:41)
[2018-02-01] VITALS: BP 131/73; PULSE 66; RESP 16; TEMP 97.3; O2SAT 92
[2018-02-01] MEDS: PIPERACIL-TAZO 4.5 GM PREMIX 100 ML IV SCH ×4 (00:49→18:20)
[2018-02-01 08:00] VITALS: BP 128/71; PULSE 67; RESP 20; TEMP 97.9; O2SAT 97
[2018-02-01] MEDS: INSULIN ASPART SUPPLEMENTAL SCALE SQ SCH ×4 (08:00→21:00)
[2018-02-01] MEDS: LACTULOSE SYRUP 20 GM/30 ML CUP PO PRN (08:25)
[2018-02-01] MEDS: ENOXAPARIN SODIUM 40 MG/0.4 ML SYRINGE SQ SCH (08:26)
[2018-02-01] MEDS: SODIUM CHLORIDE 0.9% FLUSH 10 ML FLUSH IV FLUSH SCH ×2 (08:26→20:14)
[2018-02-01 12:00] VITALS: BP 135/78; PULSE 70; RESP 18; TEMP 98.2; O2SAT 96
--- NOTE | 2018-02-01 13:41 | HHI.PR ---
Subjective Remarks Gram-negative rods on culture. Final culture still pending. Patient has no new complaints today. Pain control. He does reiterate that he has not had a bowel movement yet. Objective Vital Signs Date Time Temp Pulse Resp B/P (MAP) Pulse Ox O2 Delivery O2 Flow Rate FiO2 02/01/18 12:00 98.2 70 18 135/78 (97) 96 02/01/18 08:00 97.9 67 20 128/71 (90) 97 02/01/18 00:00 97.3 66 16 131/73 (92) 92 01/31/18 20:00 98.8 62 16 127/67 (87) 98 01/31/18 16:00 97.6 87 18 141/80 (100) 92 I/O 01/31/18 01/31/18 01/31/18 02/01/18 02/01/18 02/01/18 07:00 15:00 23:00 07:00 15:00 23:00 Intake Total 100 ml 740 ml 100 ml Balance 100 ml 740 ml 100 ml Intake Oral 740 ml IV Total 100 ml 100 ml # Voids 2 4 3 # Bowel Movements 0 Result Diagram: 01/28/18 2330 01/28/18 2330 Medications and IVs GENERAL: NAD, A&Ox3 HEAD: Normocephalic. NECK: Supple, trachea midline. No lymphadenopathy. EYES: No scleral icterus. No injection or drainage. CARDIOVASCULAR: Regular rate and rhythm without murmurs, gallops, or rubs. RESPIRATORY: Breath sounds equal bilaterally. No accessory muscle use. GASTROINTESTINAL: Abdomen soft, non-tender, nondistended. MUSCULOSKELETAL: No cyanosis, or edema. Right lower extremity has a bandage and boot. SKIN: Warm and dry. NEURO: No focal neurological deficitis. A/P Problem List: (1) Foot osteomyelitis, right ICD Code: M86.9 - Osteomyelitis, unspecified (2) Stress hyperglycemia ICD Code: R73.9 - Hyperglycemia, unspecified (3) Diabetes mellitus ICD Code: E11.9 - Type 2 diabetes mellitus without complications (4) Diabetic infection of right foot ICD Code: E11.628 - Type 2 diabetes mellitus with other skin complications; L08.9 - Local infection of the skin and subcutaneous tissue, unspecified Status: Acute Assessment and Plan 52-year-old male admitted secondary to diabetic foot ulcer with infection infected diabetic foot ulcer Continue to monitor cultures Continue IV antibiotics ID following Final planning based on final culture Final cultures pending [place] as needed for pain Diabetes mellitus type 2 Follow blood sugars Insulin sliding scale Diabetic diet DVT prophylaxis Lovenox SQ Discharge Planning Discharge once cleared with infectious disease with antibiotic arrangements accordingly. Problem Qualifiers (1) Diabetes mellitus: Addy Rios MD February 01, 2018 13:41
[2018-02-01] MEDS ORDERED: DOCUSATE SODIUM 100 MG CAP PO ONE (13:45)
[2018-02-01] MEDS ORDERED: MAGNESIUM CITRATE SOLN 300 ML BTL PO ONE (13:45)
[2018-02-01 16:00] VITALS: BP 166/80; PULSE 77; RESP 18; TEMP 98.6; O2SAT 96
[2018-02-01 20:00] VITALS: BP 132/85; PULSE 84; RESP 20; TEMP 97.9; O2SAT 97
[2018-02-01] MEDS: DOCUSATE SODIUM 100 MG CAP PO SCH (20:14)
[2018-02-02] VITALS: BP 136/75; PULSE 68; RESP 20; TEMP 97.3; O2SAT 96
[2018-02-02] MEDS: PIPERACIL-TAZO 4.5 GM PREMIX 100 ML IV SCH ×2 (01:07→06:03)
[2018-02-02 08:00] VITALS: BP 138/77; PULSE 73; RESP 16; TEMP 97.4; O2SAT 98
[2018-02-02] MEDS: INSULIN ASPART SUPPLEMENTAL SCALE SQ SCH ×4 (08:00→21:00)
[2018-02-02] MEDS: DOCUSATE SODIUM 100 MG CAP PO SCH ×2 (09:45→21:21)
[2018-02-02] MEDS: ENOXAPARIN SODIUM 40 MG/0.4 ML SYRINGE SQ SCH (09:46)
[2018-02-02] MEDS: SODIUM CHLORIDE 0.9% FLUSH 10 ML FLUSH IV FLUSH SCH ×2 (09:47→21:22)
--- NOTE | 2018-02-02 11:45 | HHI.PR ---
Subjective Remarks Acinetobacter on most recent culture. Final culture still pending. Patient has no new complaints today. Pain control. Bowel movement has occurred yesterday. Objective Vital Signs Date Time Temp Pulse Resp B/P (MAP) Pulse Ox O2 Delivery O2 Flow Rate FiO2 02/02/18 08:00 97.4 73 16 138/77 (97) 98 02/02/18 00:00 97.3 68 20 136/75 (95) 96 02/01/18 20:00 97.9 84 20 132/85 (101) 97 02/01/18 16:00 98.6 77 18 166/80 (108) 96 02/01/18 12:00 98.2 70 18 135/78 (97) 96 I/O 02/01/18 02/01/18 02/01/18 02/02/18 02/02/18 02/02/18 07:00 15:00 23:00 07:00 15:00 23:00 Intake Total 100 ml 840 ml 100 ml Balance 100 ml 840 ml 100 ml Intake Oral 840 ml IV Total 100 ml 100 ml # Voids 3 4 2 # Bowel Movements 0 Result Diagram: 01/28/18 2330 Objective Remarks GENERAL: NAD, A&Ox3 HEAD: Normocephalic. NECK: Supple, trachea midline. No lymphadenopathy. EYES: No scleral icterus. No injection or drainage. CARDIOVASCULAR: Regular rate and rhythm without murmurs, gallops, or rubs. RESPIRATORY: Breath sounds equal bilaterally. No accessory muscle use. GASTROINTESTINAL: Abdomen soft, non-tender, nondistended. MUSCULOSKELETAL: No cyanosis, or edema. Right foot is bandaged. SKIN: Warm and dry. NEURO: No focal neurological deficitis. A/P Problem List: (1) Foot osteomyelitis, right ICD Code: M86.9 - Osteomyelitis, unspecified (2) Stress hyperglycemia ICD Code: R73.9 - Hyperglycemia, unspecified (3) Diabetes mellitus ICD Code: E11.9 - Type 2 diabetes mellitus without complications (4) Diabetic infection of right foot ICD Code: E11.628 - Type 2 diabetes mellitus with other skin complications; L08.9 - Local infection of the skin and subcutaneous tissue, unspecified Status: Acute Assessment and Plan 52-year-old male admitted secondary to diabetic foot ulcer with infection Acetobacter on preliminary wound culture. Final culture pending. Likely need for outpatient antibiotics. infected diabetic foot ulcer Continue to monitor cultures Continue IV antibiotics ID following Final planning based on final culture Final cultures pending [place] as needed for pain Diabetes mellitus type 2 Follow blood sugars Insulin sliding scale Diabetic diet DVT prophylaxis Lovenox SQ Discharge Planning Discharge once cleared with infectious disease with antibiotic arrangements accordingly. Problem Qualifiers (1) Diabetes mellitus: Addy Rios MD February 02, 2018 11:45
[2018-02-02 12:00] VITALS: BP 135/57; PULSE 83; RESP 17; TEMP 97.8; O2SAT 96
[2018-02-02] MEDS: AMPICILLIN-SULBACTAM INJ 3 GM in SODIUM CHLORIDE 0.9% INJ 100 ML IV SCH ×2 (12:59→17:22)
[2018-02-02] MEDS ORDERED: HYDR-3516 PO (14:29)
--- NOTE | 2018-02-02 14:57 | HHI.FF ---
Infusion Therapy Location of Infusion Therapy: [facility] Infusion Therapy Order Patient Information Patient Weight 186 kg Diagnosis: Coded Allergies: No Known Allergies (Verified Allergy, Mild, 01/28/18) Administer Medication Ceftriaxone 2 grams IV q 24 hours Start Treatment: February 02, 2018 Stop Treatment: Mar 15, 2018 Additional Information Venous access: PICC Line Additional Instructions [x] Peripheral flush and dressing changes per protocol [x] Implanted port and central manager pipeline: * Implanted port: 10 ml Normal Saline followed by 5 ml Heparin 100 units/ml Heparin flush after each use and monthly to maintain. [] May leave port accessed during therapy. [] May leave peripheral site accessed for duration of therapy. [x] If patient has SOB or respiratory distress, check oxygen saturation. If less than 90% or clinical signs of respiratory distress, administer oxygen at 2 L/min. via nasal cannula and notify physician. [x] Anaphylaxis/Reaction orders: * Stop infusion. * Keep IV line open with saline flush. * Notify physician. * Monitor vital signs every 15 minutes until symptoms resolve. * Check Oxygen saturation; Oxygen at 2 L/min. via nasal cannula if less than 90% or clinical signs of respiratory distress. * Administer diphenhydramine (Benadryl) 25 mg IV STAT, (unless patient has received as pre-med). May repeat once, if necessary. * Solu-Cortef 250 mg IVP over 30-60 seconds, use 100 mg vials for each dissolution. * Epinephrine (1mg/1 ml) 0.3 mg subcutaneously or IVP now with any signs of respiratory distress. * Check with physician for new additional pre-med orders if patient is re- challenged or re-treated. [x] May remove PICC line when treatment complete, after confirming with Physician. [x] If the patient is admitted to the hospital, the ED, or transferred via [facility] , complete transfer form including medication reconciliation order sheet. Laboratory Tests Weekly Labs: CBC w/diff, CMP Elena Ty MD February 02, 2018 14:57
[2018-02-02] MEDS ORDERED: EPIN1INJ21 IV PUSH (14:59)
[2018-02-02] MEDS ORDERED: CEFT1INJ5 IV (14:59)
[2018-02-02] MEDS ORDERED: EPIN1INJ21 SQ (14:59)
[2018-02-02] MEDS ORDERED: SOLU250I IV PUSH (14:59)
--- NOTE | 2018-02-02 15:04 | HHI.IDPN ---
Subjective Subjective Remarks no c/o afebrile Antibiotics Unasyn Allergies: Coded Allergies: No Known Allergies (Verified Allergy, Mild, 01/28/18) Objective . Vital Signs Date Time Temp Pulse Resp B/P (MAP) Pulse Ox O2 Delivery O2 Flow Rate FiO2 02/02/18 12:00 97.8 83 17 135/57 (83) 96 02/02/18 08:00 97.4 73 16 138/77 (97) 98 02/02/18 00:00 97.3 68 20 136/75 (95) 96 02/01/18 20:00 97.9 84 20 132/85 (101) 97 02/01/18 16:00 98.6 77 18 166/80 (108) 96 Imaging Last Impressions Foot MRI 01/30/18 0000 Signed Impressions: CONCLUSION: 1. Ill-defined soft tissue edema and enhancement of the second toe indicating cellulitis in the proper clinical setting. 2. Ill-defined bony edema and enhancement of the distal talus of second toe. M ild T1-weighted precontrast signal abnormality of the distal aspect of the dist al phalanx. Findings indicate early osteomyelitis in the proper clinical settin g. 3. 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 Lower Extremity Ultrasound 01/29/18 0000 Signed Impressions: CONCLUSION: 1. No evidence of DVT. Extremity Arterial Study 01/29/18 0000 Signed Impressions: CONCLUSION: 1. Elevated segmental pressures characteristic of atherosclerotic vascular dis ease 2. Normal ABIs and TBI's; no evidence of significant arterial insufficiency. Foot X-Ray 01/28/18 0000 Signed Impressions: Service Date/Time: Sunday, January 28, 2018 23:11 - CONCLUSION: 1. Mild to moderate degenerative change in the mid and hindfoot with no destructive change identified. 2. Moderate-sized spur off the inferior calcaneus. Francisco Whitmore MD Physical Exam CONSTITUTIONAL/GENERAL: This is an adequately nourished patient, in no apparent distress. TUBES/LINES/DRAINS: SKIN: No jaundice, rashes, or lesions. Skin temperature appropriate. Not diaphoretic. RESPIRATORY/CHEST: Symmetric, unlabored respirations. MUSCULOSKELETAL: Extremities without clubbing, cyanosis, or edema. R foot with dressing in place 2 R toe is still swollen, erytmatous sausage shaped, red with unroofed blister on the tip now dry, crusted NEUROLOGICAL: Awake and alert. non focal PSYCHIATRIC: No obvious anxiety/depression. no apparent hallucinations or other psychotic thought process. Assessment & Plan Remarks DFI, osteomyelitis 2 nd R toe sp b/s debridement growing Acinetobacter Lwoffi: no oral options - I to Levaquin, R to bactrim dc zosyn, start Unasyn OK to d/c on Rocephine 2 gm daily x 6 weeks 6 wks of abx PICC ordered OPAT form filled out Discussed Condition With case mngr dw pt Elena Iverson MD February 02, 2018 15:04
[2018-02-02 16:00] VITALS: BP 127/77; PULSE 67; RESP 19; TEMP 97.8; O2SAT 94
[2018-02-02 17:31] LABS: AUTOMATED NEUTROPHIL # 5.7 TH/MM3 (1.8-7.7); BASOPHIL % 0.6 % (0.0-2.0); EOSINOPHIL # 0.1 TH/MM3 (0-0.4); EOSINOPHIL % 1.6 % (0.0-4.0); HEMATOCRIT 43.4 % (39.0-51.0); HEMOGLOBIN 14.8 GM/DL (13.0-17.0); LYMPH % 21.5 % (9.0-44.0); LYMPHOCYTE # 1.8 TH/MM3 (1.0-4.8); MEAN CELL VOLUME 81.8 FL (80.0-100.0); MEAN CORPUSCULAR HEMOGLOBIN 27.8 PG (27.0-34.0); MEAN PLATELET VOLUME 7.6 FL (7.0-11.0); MONO % 9.3 % (0.0-8.0); MONOCYTE # 0.8 TH/MM3 (0-0.9); PLATELET COUNT 250 TH/MM3 (150-450); RED BLOOD COUNT 5.31 MIL/MM3 (4.50-5.90); RED CELL DISTRIBUTION WIDTH 14.8 % (11.6-17.2); WHITE BLOOD COUNT 8.6 TH/MM3 (4.0-11.0)
[2018-02-02 18:04] LABS: BICARBONATE 25.7 MEQ/L (21.0-32.0); CALCIUM 8.6 MG/DL (8.5-10.1); CREATININE 0.83 MG/DL (0.60-1.30)
[2018-02-02 20:00] VITALS: BP 132/77; PULSE 71; RESP 19; TEMP 97.4; O2SAT 98
[2018-02-03] VITALS: BP 133/70; PULSE 64; RESP 19; TEMP 98.1; O2SAT 99
[2018-02-03] MEDS: AMPICILLIN-SULBACTAM INJ 3 GM in SODIUM CHLORIDE 0.9% INJ 100 ML IV SCH ×4 (00:22→16:30)
[2018-02-03 08:00] VITALS: BP 138/89; PULSE 69; RESP 17; TEMP 97.8; O2SAT 97
[2018-02-03] MEDS: INSULIN ASPART SUPPLEMENTAL SCALE SQ SCH ×2 (08:00→11:55)
[2018-02-03] MEDS: SODIUM CHLORIDE 0.9% FLUSH 10 ML FLUSH IV FLUSH SCH (10:00)
[2018-02-03] MEDS: ENOXAPARIN SODIUM 40 MG/0.4 ML SYRINGE SQ SCH (10:00)
[2018-02-03] MEDS: DOCUSATE SODIUM 100 MG CAP PO SCH (10:00)
--- NOTE | 2018-02-03 11:15 | HHI.FF ---
Face to Face Verification Diagnosis: (1) Diabetic infection of right foot Home Health Nursing Order: Signs/symptoms of disease process Wound care and dressing changes Nursing assessment with vital signs I have seen patient Cash Fournier on 02/03/18. My clinical findings support the need for the requested home health care services because: Infection w/ risk of complications Injectable med education/admin I certify that my clinical findings support that this patient is homebound because: Unsafe to leave home unassisted Isaiah Granados MD February 03, 2018 11:15
[2018-02-03] MEDS ORDERED: SODIUM CHLORIDE 0.9% FLUSH 10 ML FLUSH IV FLUSH PRN (11:30)
[2018-02-03 12:00] VITALS: BP 127/73; PULSE 67; RESP 17; TEMP 97.2; O2SAT 95
--- NOTE | 2018-02-03 14:53 | HHI.DS ---
Discharge Summary Admission Date January 29, 2018 at 01:00 Discharge Date: February 03, 2018 Admitting Diagnosis Infected diabetic foot ulcer (1) Diabetic infection of right foot ICD Code: E11.628 - Type 2 diabetes mellitus with other skin complications; L08.9 - Local infection of the skin and subcutaneous tissue, unspecified Status: Acute (2) Diabetes mellitus ICD Code: E11.9 - Type 2 diabetes mellitus without complications (3) Foot osteomyelitis, right ICD Code: M86.9 - Osteomyelitis, unspecified Procedures Bedside debridement performed to right second digit Brief History - From Admission Mr. Fournier is a 52-year-old male with a history of diabetes mellitus who presents to the emergency department on 01/29/2018 for an evaluation of right foot infection. About a week ago he noted a blister on his right second toe. Due to diabetic neuropathy, he did not feel much pain. During the course of 1 week, his first 2 toes on the right side have become tip necrosis and swelling. He denies any fever or chills. Patient denies any chest pain, abdominal pain, changes in bowel or bladder habits. CBC/BMP: 02/02/18 1615 02/02/18 1615 Significant Findings Laboratory Tests Test 02/02/18 16:15 Monocytes (%) (Auto) 9.3 % (0.0-8.0) PE at Discharge Right foot in dressing up until ankle with no obvious edema in the toes or foot Lying in bed, awake, alert, no acute distress, clear breath sounds bilaterally Hospital Course Patient was admitted, started on IV antibiotics. Underwent MRI which was suggestive of osteomyelitis. Underwent bedside debridement of second right digit by podiatry. Infectious disease: Managed antibiotics and arrange for outpatient IV antibiotics. Patient has met maximal benefit from hospitalization and is clinically stable for discharge. Pt Condition on Discharge: Stable Discharge Disposition: Disch w/ Home Health Serv Discharge Time: <= 30 minutes Discharge Instructions DIET: Follow Instructions for: Heart Healthy Diet, Diabetic Diet Activities you can perform: See Additionl Instruction Other Activity Instructions: per podiatry restrictions Follow up Referrals: PCP Follow-up - 1 Week [facility] - [facility] New Medications: Ceftriaxone Inj (Ceftriaxone Inj) 1 Gram Inj 2 GM IV DAILY for Infection for 40 Days, BAG Epinephrine Inj (Epinephrine Inj) 1 Mg/Ml (1 Ml) Inj 0.3 MG IV PUSH ONCE PRN for ALLERGIC REACTION, #1 VIAL Epinephrine Inj (Epinephrine Inj) 1 Mg/Ml (1 Ml) Inj 0.3 MG SQ ONCE PRN for ALLERGIC REACTION, #1 VIAL Give with any signs of respiratory distress. Hydrocortisone Inj (Solu-Cortef Inj) 250 Mg/2 Ml Inj 250 MG IV PUSH ONCE PRN for ALLERGIC REACTION, #1 VIAL 0 Refills Give over 30-60 seconds. Hydrocodone/Acetaminophen (Hydrocodone-Acetamin 5-325 mg) 5 Mg-325 Mg Tablet 1 TAB PO Q6H PRN for Pain, #30 TAB Continued Medications: Metformin (Metformin) 1,000 Mg Tab 1000 MG PO DAILY for Blood Sugar Management, #30 TAB 0 Refills With a meal Saxagliptin (Onglyza) 5 Mg Tab 5 MG PO DAILY for Blood Sugar Management, #30 TAB 0 Refills Discontinued Medications: Naproxen Sodium (Naproxen Sodium) 220 Mg Tab 220 MG PO BID PRN for Pain Management, TAB 0 Refills Isaiah Granados MD February 03, 2018 14:53
[2018-02-03 16:00] VITALS: BP 141/58; PULSE 69; RESP 17; TEMP 97.5; O2SAT 99
[2018-02-04] MEDS ORDERED: SODIUM CHLORIDE 0.9% FLUSH 10 ML FLUSH IV FLUSH SCH (09:00)
== END 2018-02-03 18:21 | disposition home or self-care (01) | DRG 638 ==
LOC: NEPD 22:22 → NEDA 01-29 01:00 → NEPFCDU 01-29 01:50 → N07B 01-30 11:43
PROVIDERS: ADMIT Hospitalist; ATTEND Hospitalist
PROC: 0HDMXZZ Extraction of Right Foot Skin, External Approach (ICD-10-PCS; principal; 2018-01-30)
DX: E11.621 Type 2 diabetes mellitus with foot ulcer (principal); L03.115 Cellulitis of right lower limb; M86.9 Osteomyelitis, unspecified; E11.40 Type 2 diabetes mellitus with diabetic neuropathy, unspecified; E11.628 Type 2 diabetes mellitus with other skin complications; L97.519 Non-pressure chronic ulcer of other part of right foot with unspecified severity; S90.821A Blister (nonthermal), right foot, initial encounter; E11.65 Type 2 diabetes mellitus with hyperglycemia
CPT/HCPCS: 36569; 73630; 73720; 76937; 80048; 80053; 82948; 83036; 83605; 85025; 85610; 85652; 85730; 86140; 87040; 87070; 87077; 87186; 87205; 93922; 93970; 96365; A9579; J0295; J1650; J2543; L3260